=== PATIENT | male | born 1975 | race American Indian/Alaskan Native ===

== ENCOUNTER 2018-04-02 01:26 | Emergency (ER) | payer MEDICAID, OTHER ==
[2018-04-02 01:27] VITALS: BMI 40.1
[2018-04-02 01:50] VITALS: RESP 18
--- NOTE | 2018-04-02 04:00 | ED PDOC ---
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 He could hear it buzzing and he put a solution to kill it ( unsure about the solution). Patient also reports right upper tooth pain for the last 3 days, but denies face swollen, odynophagia, dysphagia, fever, chills, chest pain, SOB, n,v,d abd pain. PMD: Dr Falk (Viviana Yepez) Supervising Attending Note - Supervising Attending Note The Documented history was done by the: Physician Grounds Crew Supervisor The documented physical exam was done by the: Physician Grounds Crew Supervisor The documented procedures were done by the: Physician Grounds Crew Supervisor - Attestation: I have personally seen and examined this patient.: Yes I have fully participated in the care of the patient.: Yes I have reviewed all pertinent clinical information, including history, physical exam and plan: Yes <Froylan Alcantar - Last Filed: 04/03/18 02:41> Past Medical History Reviewed: Historical Data, Nursing Documentation, Vital Signs - Medical History PMH: Deep Vein Thrombosis (L leg), Fractures - Family History Family History: States: Unknown Family Hx - Immunization History Hx Tetanus Toxoid Vaccination: Yes Hx Influenza Vaccination: No Hx Pneumococcal Vaccination: Yes <Viviana Yepez - Last Filed: 04/02/18 04:50> <Froylan Alcantar - Last Filed: 04/03/18 02:41> Vital Signs: Last Vital Signs Temp 98.0 F 04/02/18 05:02 Pulse 78 04/02/18 05:02 Resp 18 04/02/18 05:02 BP 143/85 04/02/18 05:02 Pulse Ox 100 04/02/18 05:02 - Home Medications Home Medications: Ambulatory Orders Medication Instructions Recorded Doxycycline Hyclate 100 mg PO Q12 #14 tab 04/08/16 Warfarin [Coumadin] 10 mg PO DAILY 04/08/16 Amoxicillin/Clavulanate [Augmentin 1 tab PO BID #14 tab 04/02/18 875 MG-125 MG] - Allergies Allergies/Adverse Reactions: Allergies Allergy/AdvReac Type Severity Reaction Status Date / Time No Known Allergies Allergy Verified 04/08/16 12:09 Review of Systems ROS Statement: Except As Marked, All Systems Reviewed And Found Negative ENT: Positive for: Ear Pain (left side ear pain ), Other (tooth pain ) <Viviana Yepez - Last Filed: 04/02/18 04:50> Physical Exam - Physical Exam Appears: Positive for: Well, No Acute Distress Head Exam: Positive for: ATRAUMATIC, NORMAL INSPECTION, NORMOCEPHALIC Skin: Positive for: Normal Color Eye Exam: Positive for: Normal appearance ENT: Positive for: Pharynx Is (normal ), TM Is/Are (rigth Ear: fly insect seen sticked to the canal very close to the TM ) Neck: Positive for: Normal, Supple Cardiovascular/Chest: Positive for: Regular Rate, Rhythm. Negative for: Murmur Respiratory: Positive for: Normal Breath Sounds. Negative for: Crackles, Rales , Rhonchi, Wheezing Neurologic/Psych: Positive for: Alert, Oriented <Viviana Yepez - Last Filed: 04/02/18 04:50> - ECG O2 Sat by Pulse Oximetry: 98 <Viviana Yepez - Last Filed: 04/02/18 04:50> Medical Decision Making <Viviana Yepez - Last Filed: 04/02/18 04:50> <Froylan Alcantar - Last Filed: 04/03/18 02:41> Medical Decision Makin:10 Impression Left ear foreign body (insect) Differential AOM, External Otitis Plan Lidocaine viscous -Irrigation with warm water -Alligator forcep placed, small part of insect taken out, but still retain insect parts -Patient advised to see ENT Dr Pate -Augmentin 875 mg PO BID x 7 days. (Viviana Yepez) Disposition - Disposition Disposition Time: 04:50 <Viviana Yepez - Last Filed: 04/02/18 04:50> <Kierra Alcantarsherri Cristal - Last Filed: 04/03/18 02:41> - Clinical Impression Clinical Impression: Foreign body in ear - Disposition Referrals: [facility] [Outside] Amari Perez MD [Staff Provider] - Condition: IMPROVED Additional Instructions: follow up with the ENT doctor in 1-2 days return to the ED with any worsening or concerning symptoms Prescriptions: Amoxicillin/Clavulanate [Augmentin 875 MG-125 MG] 1 tab PO BID #14 tab Instructions: Removing Objects Stuck in the Ear Forms: [facility] ([place])
[2018-04-02] MEDS ORDERED: Lidocaine 2% Jelly (Uro-Jet) ONE (04:12)
[2018-04-02] MEDS ORDERED: Lidocaine 2% Jelly (Uro-Jet) TOP ONE (04:13)
[2018-04-02 05:03] VITALS: BP 143/85; PULSE 78; TEMP 98; O2SAT 100
== END 2018-04-02 05:04 | disposition home or self-care (01) ==
LOC: H.ER 01:26
DX: T16.2XXA Foreign body in left ear, initial encounter (principal); Z79.01 Long term (current) use of anticoagulants; Z86.718 Personal history of other venous thrombosis and embolism